=== PATIENT | female | born 1980 | race Caucasian/White ===

== ENCOUNTER → 2016-10-06 | Outpatient (CLI) | payer OTHER ==
--- NOTE | 2016-10-06 10:48 | RAD ---
EXAM: BREAST LEFT HISTORY: Breast lump COMPARISON: None available Focused ultrasound images were obtained of the left breast at the area of concern for lump. FINDINGS: The left upper breast was evaluated at the site of concern for lump. The patient's chest wall musculature as well as glandular tissue and fatty tissue is observed without a fluid collection or mass. IMPRESSION: No definite fluid collection or mass is seen within the left upper breast. Given the clinical concern for a enlarging mass recommend that the patient obtain a mammogram to further evaluate to ensure that there is not a sonographically occult mass. BI-RADS CATEGORY: 0 NEED ADD'L IMAGE/PRIOR MAMMO RECOMMENDED FOLLOW-UP: ADD ADDITIONAL IMAGING
== END | disposition home or self-care (01) ==
LOC: US 09:30
PROVIDERS: ATTEND Physician Assistant
DX: N63 Unspecified lump in breast (principal)
CPT/HCPCS: 76641

== ENCOUNTER → 2016-12-03 | Outpatient (CLI) | payer OTHER ==
--- NOTE | 2016-12-06 14:25 | RAD ---
DATE: 12/03/2016 EXAM: BREAST LEFT, MAMMO [facility]AY[facility] DIAG BILAT HISTORY: Feeling breast lump at 1:00 position of the left breast COMPARISON: 08/31/2013 This study was interpreted with the benefit of Computerized Aided Detection (CAD ). FINDINGS: Breast Density: HETERO The breast parenchyma Is heterogeneiously dense, which could reduce sensitivity of mammography. Breast parenchyma level C. There are no dominant suspicious masses, suspicious microcalcifications or evidence of architectural distortion. Targeted ultrasound of the left breast demonstrated no definite evidence of mass or lesion at the site of palpability. IMPRESSION: Benign findings BI-RADS CATEGORY: 2 BENIGN FINDING RECOMMENDED FOLLOW-UP: Recommend routine mammogram when patient is due for a mammogram. Clinical follow-up is recommended for the perceived breast lump. PQRS compliance statement: Patient information was entered into a reminder system with a target due date when patient is due for the next mammogram. Mammography is a sensitive method for finding small breast cancers, but it does not detect them all and is not a substitute for careful clinical examination. A negative mammogram does not negate a clinically suspicious finding and should not result in delay in biopsying a clinically suspicious abnormality. "Our facility is accredited by the [employer] Mammography Program." MTDD
== END | disposition home or self-care (01) ==
LOC: MAMMO 07:31
PROVIDERS: ATTEND Family Medicine
DX: R92.8 Other abnormal and inconclusive findings on diagnostic imaging of breast (principal)
CPT/HCPCS: 76641; G0204; G0279; 77062; 77066

== ENCOUNTER → 2018-02-16 | Outpatient (CLI) | payer OTHER ==
[2018-02-16 18:13] LABS: BASO % 1 % (0-3); EOS # 0.3 x10^3/uL (0.0-0.7); EOS % 5 % (0-3); HEMATOCRIT 39.9 % (36.0-47.0); LYMPH # 2.5 x10^3/uL (1.0-4.8); LYMPH % 40 % (24-48); MEAN CORPUSCULAR HEMOGLOBIN 28 pg (25-35); MEAN CORPUSCULAR HGB CONC 33 g/dL (31-37); MEAN CORPUSCULAR VOLUME 86 fL (79-100); MONO # 0.6 x10^3/uL (0.0-1.1); MONO % 9 % (0-9); NEUT # 2.9 x10^3uL (1.8-7.7); NEUT % 46 % (31-73); PLATELET COUNT 301 x10^3/uL (140-400); RED BLOOD COUNT 4.67 x10^6/uL (3.50-5.40); RED CELL DISTRIBUTION WIDTH 13.8 % (11.5-14.5); WHITE BLOOD COUNT 6.3 x10^3/uL (4.0-11.0)
[2018-02-16 20:04] LABS: ALBUMIN 3.9 g/dL (3.4-5.0); ALBUMIN/GLOBULIN RATIO 1.1 (1.0-1.7); CALCIUM 8.6 mg/dL (8.5-10.1); CREATININE 0.8 mg/dL (0.6-1.0); GFR 81.2; POTASSIUM 3.6 mmol/L (3.5-5.1); TOTAL BILIRUBIN 0.3 mg/dL (0.2-1.0); TOTAL PROTEIN 7.4 g/dL (6.4-8.2)
[2018-02-17 14:04] LABS: FREE T4 0.79 ng/dL (0.76-1.46); THYROID STIM HORMONE (TSH) 0.912 uIU/mL (0.358-3.740)
== END | disposition home or self-care (01) ==
LOC: LAB 17:38
PROVIDERS: ATTEND Physician Assistant Medical
DX: Z00.01 Encounter for general adult medical examination with abnormal findings (principal); F33.1 Major depressive disorder, recurrent, moderate; F41.1 Generalized anxiety disorder
CPT/HCPCS: 36415; 80053; 80061; 84439; 84443; 85025

== ENCOUNTER → 2018-06-23 | Outpatient (CLI) | payer OTHER ==
--- NOTE | 2018-06-24 09:03 | RAD ---
HIP LEFT 2V WITH PELVIS (pelvis, left hip AP and frog-leg view) INDICATION: left hip pain COMPARISON: None. FINDINGS: No acute fracture or malalignment. The joint spaces are maintained. Bony mineralization is normal for the patient's age. No significant soft tissue abnormality. No radiopaque foreign body. IMPRESSION: No acute fracture or malalignment. Electronically signed by: Jeronimo Cuellar MD (06/24/2018 9:00 AM) [facility]
[2018-06-24 10:24] LABS: FREE T4 0.91 ng/dL (0.76-1.46); THYROID STIM HORMONE (TSH) 0.802 uIU/mL (0.358-3.740)
== END | disposition home or self-care (01) ==
LOC: LAB 17:26
PROVIDERS: ATTEND Physician Assistant Medical
DX: M25.552 Pain in left hip (principal); R10.2 Pelvic and perineal pain; R53.83 Other fatigue
CPT/HCPCS: 73502; 84439; 84443